=== PATIENT | female | born 1930 | race Two or more races ===

== ENCOUNTER 2020-05-27 13:45 | Inpatient (IN) | payer MEDICARE ==
[~2020-05-27] VITALS: Ht 157.5 cm; Wt 75.3 kg
[2020-05-27 16:15] LABS: BASOPHILS % 0.6 % (0.0-2.0); HEMATOCRIT. 35.8 % (36.0-48.0); HEMOGLOBIN. 11.8 g/dL (12.0-16.0); LYMPHOCYTES % 9.9 % (20.0-50.0); MEAN CORPUSCULAR HEMOGLOBIN 30.4 pg (28.0-32.0); MEAN CORPUSCULAR VOLUME 92.2 fL (81.0-99.0); MEAN PLATELET VOLUME 8.9 fl (7.4-10.4); NEUTROPHILS % 80.5 % (40.0-76.0); PLATELET 304 x1000/uL (130-400); RED BLOOD CELL COUNT 3.88 mill/uL (4.2-5.4); RED CELL DISTRIBUTION WIDTH 14.6 % (11.6-14.6)
[2020-05-27 16:21] LABS: CHLORIDE 109 mEq/L (98-107); PARTIAL THROMBOPLASTIN TIME 31.3 sec (23.4-31.0); PROTHROMBIN TIME 10.3 sec (9.6-11.0)
[2020-05-27] MEDS ORDERED: ASPIRIN 325MG EC TABLET PO ONE (17:15)
[2020-05-27] MEDS ORDERED: LORAZEPAM 0.5MG TABLET PO PRN (20:00)
[2020-05-27] MEDS ORDERED: GUAIFENESIN 200MG/10ML SUGAR FREE UDC PO PRN (20:00)
[2020-05-27] MEDS ORDERED: DIPHENHYDRAMINE 50MG/ML VIAL IV PRN (20:00)
[2020-05-27] MEDS ORDERED: HYDROCODONE/ACETAMINOPHEN 5/325MG TABLET PO PRN (20:00)
[2020-05-27] MEDS ORDERED: CLONIDINE 0.1MG TABLET PO PRN (20:00)
[2020-05-27] MEDS ORDERED: ONDANSETRON HCL 4MG/2ML INJ IV PRN (20:00)
[2020-05-27] MEDS ORDERED: ACETAMINOPHEN 650MG SUPP PR PRN (20:00)
[2020-05-27] MEDS ORDERED: MAGNESIUM/ALUMINUM HYDROXIDE/SIMETHICONE 30ML UDC PO PRN (20:00)
[2020-05-27] MEDS ORDERED: DOCUSATE SODIUM 100MG CAPSULE PO PRN (20:00)
[2020-05-27] MEDS ORDERED: IPRATROPIUM/ALBUTEROL 0.5-3(2.5)MG/3ML NEB NEB PRN (20:00)
[2020-05-27] MEDS ORDERED: NA PHOS,M-B/NA PHOS,DI-BA ENEMA 118ML PR PRN (20:00)
[2020-05-27] MEDS ORDERED: ACETAMINOPHEN 325MG TABLET PO PRN (20:00)
[2020-05-27] MEDS ORDERED: LEVOFLOXACIN 500MG PREMIX 100 ML IV SCH (21:00)
[2020-05-27] MEDS: FAMOTIDINE 20MG TABLET PO SCH (21:00)
[2020-05-27 21:40] VITALS: BP 156/80
[2020-05-27 22:04] LABS: CLARITY URINE CLEAR (CLEAR); COLOR URINE YELLOW (YELLOW); KETONES URINE NEGATIVE (NEGATIVE); LEUKOCYTE ESTERASE URINE TRACE (NEGATIVE); NITRITE URINE NEGATIVE (NEGATIVE); OCCULT BLOOD URINE NEGATIVE (NEGATIVE); PH URINE >=9.0 (4.5-8.0); PROTEIN URINE TRACE (NEGATIVE); SPECIFIC GRAVITY URINE 1.009 (1.005-1.030); UROBILINOGEN URINE 0.2 E.U./dL (0.2-1.0)
[2020-05-27 22:19] LABS: *AMPHETAMINES SCREEN URINE NEGATIVE (NEGATIVE); *BARBITURATES SCREEN URINE NEGATIVE (NEGATIVE); *BENZODIAZEPINES SCREEN URINE NEGATIVE (NEGATIVE); *COCAINE SCREEN URINE NEGATIVE (NEGATIVE); METHADONE URINE SCREEN NEGATIVE (NEGATIVE); OPIATES URINE SCREEN NEGATIVE (NEGATIVE)
[2020-05-27 22:20] LABS: CANNABINOID URINE SCREEN NEGATIVE (NEGATIVE); PHENCYCLIDINE URINE SCREEN NEGATIVE (NEGATIVE)
[2020-05-27] MEDS ORDERED: LOVA40TA73 MT (23:32)
[2020-05-27] MEDS ORDERED: NIFE-32 MT (23:32)
[2020-05-28] VITALS: BP 143/72
[2020-05-28 01:06] LABS: CREATINE KINASE 135 IU/L (26-192); CREATINE KINASE MB FRACTION 3.8 ng/mL (0.5-3.6)
[2020-05-28 04:00] VITALS: BP 132/64
[2020-05-28] MEDS: VANCOMYCIN 1250MG in DEXTROSE 5% WATER 250ML IV SCH ×2 (05:48→22:55)
[2020-05-28] MEDS: ENOXAPARIN 30MG/0.3ML SYR SUBCUT SCH ×2 (06:09→21:35)
[2020-05-28 07:28] LABS: BASOPHILS % 0.8 % (0.0-2.0); EOSINOPHILS % 2.8 % (0.0-5.0); HEMATOCRIT. 34.8 % (36.0-48.0); HEMOGLOBIN. 11.5 g/dL (12.0-16.0); LYMPHOCYTES % 14.4 % (20.0-50.0); MEAN CORPUSCULAR HEMOGLOBIN 30.9 pg (28.0-32.0); MEAN CORPUSCULAR VOLUME 93.2 fL (81.0-99.0); MEAN PLATELET VOLUME 8.7 fl (7.4-10.4); PLATELET 267 x1000/uL (130-400); RED BLOOD CELL COUNT 3.73 mill/uL (4.2-5.4); RED CELL DISTRIBUTION WIDTH 15.1 % (11.6-14.6)
[2020-05-28 07:51] LABS: CHLORIDE 110 mEq/L (98-107)
[2020-05-28 08:00] VITALS: BP 152/68
[2020-05-28] MEDS ORDERED: LEVOFLOXACIN 500MG PREMIX 100 ML IV SCH (08:00)
[2020-05-28 08:02] LABS: CREATINE KINASE 142 IU/L (26-192); CREATINE KINASE MB FRACTION 4.1 ng/mL (0.5-3.6); HDL CHOLESTEROL 85 mg/dL (40-59); LDL CHOLESTEROL 77 mg/dL (5-100); T4 FREE 0.87 ng/dL (0.76-1.46)
[2020-05-28] MEDS: ASPIRIN 81MG EC TABLET PO SCH (08:33)
[2020-05-28 12:00] VITALS: BP 147/78
[2020-05-28] MEDS: MECLIZINE 25MG TABLET PO SCH (17:50)
[2020-05-28] MEDS ORDERED: IPRATROPIUM/ALBUTEROL 0.5-3(2.5)MG/3ML NEB HHN PRN (19:30)
[2020-05-28 20:00] VITALS: BP 169/87
[2020-05-28] MEDS ORDERED: ATORVASTATIN CALCIUM 10MG TABLET PO SCH (21:00)
[2020-05-28] MEDS ORDERED: LEVOFLOXACIN 250MG PREMIX 50 ML IV SCH (21:00)
[2020-05-28] MEDS: FAMOTIDINE 20MG TABLET PO SCH (21:34)
[2020-05-29] VITALS: BP 174/88
[2020-05-29 04:00] VITALS: BP 140/70
[2020-05-29 08:00] VITALS: BP 132/68
[2020-05-29] MEDS: MECLIZINE 25MG TABLET PO SCH ×2 (09:15→17:41)
[2020-05-29] MEDS: LEVOFLOXACIN 250MG PREMIX 50 ML IV SCH (09:15)
[2020-05-29] MEDS: ASPIRIN 81MG EC TABLET PO SCH (09:15)
[2020-05-29 12:10] VITALS: BP 147/88
[2020-05-29 16:00] VITALS: BP 140/81
[2020-05-29 20:00] VITALS: BP 140/81
[2020-05-29] MEDS ORDERED: ATORVASTATIN CALCIUM 20MG TABLET PO SCH (21:00)
[2020-05-29] MEDS: FAMOTIDINE 20MG TABLET PO SCH (21:37)
[2020-05-29] MEDS: VANCOMYCIN 1250MG in DEXTROSE 5% WATER 250ML IV SCH (21:38)
[2020-05-29] MEDS: ENOXAPARIN 30MG/0.3ML SYR SUBCUT SCH (21:38)
[2020-05-30] VITALS (7 sets, daily range): BP systolic 127–164; BP diastolic 58–79
[2020-05-30] MEDS: ASPIRIN 81MG EC TABLET PO SCH (08:51)
[2020-05-30] MEDS: MECLIZINE 25MG TABLET PO SCH ×2 (08:51→17:35)
[2020-05-30] MEDS: LEVOFLOXACIN 250MG PREMIX 50 ML IV SCH (08:51)
[2020-05-30] MEDS ORDERED: ATOR10TA MT (13:34)
[2020-05-30] MEDS ORDERED: CEPH-569 MT (13:34)
[2020-05-30] MEDS ORDERED: ASPI-1497 MT (13:34)
[2020-05-30] MEDS ORDERED: VANCOMYCIN 750 MG PREMIX 150 ML IV SCH (22:00)
== END 2020-05-30 20:00 | disposition home or self-care (01) | DRG 64 ==
LOC: ER 13:45 → SUPCPDRO 18:01 → ENRESERV 20:31 → 6WST 23:34
PROVIDERS: ADMIT Internal Medicine; ATTEND Internal Medicine
DX: I63.9 Cerebral infarction, unspecified (principal); I50.33 Acute on chronic diastolic (congestive) heart failure; G81.94 Hemiplegia, unspecified affecting left nondominant side; L03.116 Cellulitis of left lower limb; D64.9 Anemia, unspecified; E78.5 Hyperlipidemia, unspecified; E86.0 Dehydration; I11.0 Hypertensive heart disease with heart failure; I27.20 Pulmonary hypertension, unspecified; I45.10 Unspecified right bundle-branch block; Z79.899 Other long term (current) drug therapy; J45.909 Unspecified asthma, uncomplicated; R73.9 Hyperglycemia, unspecified; Z88.0 Allergy status to penicillin; R42 Dizziness and giddiness
CPT/HCPCS: 36415; 70551; 71045; 80048; 80053; 80061; 80202; 80305; 81003; 82550; 82553; 83036; 83880; 84439; 84443; 84484; 85025; 92523; 92610; 93005; 93306; 93880; 93970; 94640; 95816; 97162; 97166; 97530; 97535; 99285; J1650; J1956; J3370; J7060; J8597